=== PATIENT | female | born 1940 | race Caucasian/White ===

== ENCOUNTER → 2017-05-15 | Outpatient (CLI) | payer MEDICARE ==
--- NOTE | 2017-05-15 15:33 | RADIOLOGY REPORT PS360 ---
ARTERIAL/[id number] PROLONGED CAPILLARY REFILL TIME, bilateral rest pain, bilateral claudication, hyperlipidemia, peripheral vascular disease ORDERING PHYSICIAN: Irene FULLER PATIENT AGE: 76 years TECHNIQUE: Segmental pressures obtained of both right and left leg. These are compared to brachial blood pressure to yield index at each level sampled including summary JACINTA. The data sheets from the procedure are available in PACS FINDINGS Rest study only performed today No prior studies available for comparison. Blood pressures reported are in millimeters mercury. RIGHT LEG JACINTA = 0.4. Brachial BP: 236 Thigh BP: 198 Calf BP: 157 Ankle PT: 101 Ankle DP : 94 Digit =135 LEFT LEG JACINTA = 1.1 Brachial BPD: 233 Thigh BP: 254 Calf BP: 252 Ankle PT:250 Ankle DP: 224 Digit = 115 Pulses and waveforms: Diminished pulses and abnormal waveforms on the right IMPRESSION: Low right-sided JACINTA of 0.4 indicating severe arterial disease. Hypertension. Patient was transported to the emergency room by wheelchair
== END ==
LOC: RT 13:44
DX: R09.89 Other specified symptoms and signs involving the circulatory and respiratory systems (principal); M79.604 Pain in right leg

== ENCOUNTER → 2017-07-11 | Outpatient (CLI) | payer MEDICARE ==
[2017-07-11 12:02] LABS: BILIRUBIN, INDIRECT 0.39 mg/dL (0-0.9)
== END ==
LOC: LAB 09:29
PROVIDERS: Internal Medicine Interventional Cardiology
DX: E78.00 Pure hypercholesterolemia, unspecified (principal)